=== PATIENT | female | born 1950 | race Caucasian/White ===

== ENCOUNTER 2022-11-09 10:45 | Outpatient (CLI) | payer MEDICARE | END 2022-11-09 10:46 | disposition home or self-care (01) | LOC: BURRAD 10:45 | PROVIDERS: ATTEND Family Medicine | DX: J44.1 Chronic obstructive pulmonary disease with (acute) exacerbation (principal); J98.4 Other disorders of lung | CPT/HCPCS: 71046 ==

== ENCOUNTER 2023-02-13 10:17 | Outpatient (CLI) | payer MEDICARE | END 2023-02-13 10:18 | disposition home or self-care (01) | LOC: BURRAD 10:17 | PROVIDERS: ATTEND Family Medicine | DX: M79.672 Pain in left foot (principal) ==